=== PATIENT | female | born 1970 | race Caucasian/White ===

== ENCOUNTER 2017-01-22 23:33 | Emergency (ER) | payer MEDICARE ==
[~2017-01-22] VITALS: Ht 167.6 cm; Wt 109.0 kg
[~2017-01-22 23:33] MED LIST: ACID1TAB7 PO; ALBU8.5H5 INH; ARIP10TA13 PO; ARTANE PO; ASEN5TAB7 SL; BUDE10.22 INH; BUSP15TA PO; BUSP30TA PO; CARB200T PO; CEPH-376 PO; DOXY100T PO; DULO30CA2 PO; DULO60CA7 PO; FLUO40CA2 PO; FLUO40CA9 PO; GABA100C8; GABA300C10 PO; GABA600T2 PO; HYDR-3307 PO; HYDR2TAB40 PO; HYDR4TAB16 PO; HYDR50CA PO; LEVO50CA2 PO; LEVO50TA5 PO; LORA0.5T PO; LURA40TA PO; MELO-190 PO; MONT10TA6 PO; MONT10TA9 PO; NAPR500T PO; OXYC-302 PO; PREG75CA PO; QUET200T4 PO; SULF1TAB23 PO; TIOT18CA INH; TOPI200T6 PO; TRAM-28 PO; TRAZ100T15 PO; TRAZ150T68 PO; [UNRECOGNIZED DRUG - OTHER] PO; [UNRECOGNIZED DRUG - OTHER] PO
[2017-01-23] MEDS ORDERED: DIPHENHYDRAMINE 50 MG/ML, 1ML ONE (00:18)
[2017-01-23] MEDS ORDERED: PROCHLORPERAZINE 5 MG/ML, 2ML ONE (00:18)
[2017-01-23] MEDS ORDERED: KETOROLAC 30 MG/1 ML ONE (00:18)
[2017-01-23] MEDS ORDERED: KETOROLAC 30 MG/1 ML IVPush ONE (00:30)
[2017-01-23] MEDS ORDERED: PROCHLORPERAZINE 5 MG/ML, 2ML IVPush ONE (00:30)
[2017-01-23] MEDS ORDERED: DIPHENHYDRAMINE 50 MG/ML, 1ML IVPush ONE (00:30)
[2017-01-23] MEDS ORDERED: SODIUM CHLORIDE FLUSH 10ML SYR IVF ONE (00:30)
[2017-01-23] MEDS ORDERED: SODIUM CHLORIDE 0.9% 1,000ML IVBOLUS ONE (00:30)
[2017-01-23 00:50] LABS: HEMOGLOBIN 11.3 g/dL (11.7-16.4)
[2017-01-23 00:55] LABS: ACETAMINOPHEN 3 mcg/mL (10-30); ASPARTATE AMINO TRANSFERASE 21 U/L (15-37); BLOOD UREA NITROGEN 16 mg/dL (7-18)
[2017-01-23 01:02] LABS: ANISOCYTOSIS 1+; HYPOCHROMIA 1+; POIKILOCYTOSIS 1+; POLYCHROMASIA 1+
[2017-01-23 01:04] LABS: MICROCYTOSIS 2+; OVALOCYTES 1+; SCHISTOCYTES 1+
[2017-01-23 02:27] VITALS: BP 110/63
== END 2017-01-23 02:31 | disposition home or self-care (01) ==
LOC: ED 23:59
DX: T39.1X1A Poisoning by 4-Aminophenol derivatives, accidental (unintentional), initial encounter (principal); G43.011 Migraine without aura, intractable, with status migrainosus; J45.909 Unspecified asthma, uncomplicated; F41.1 Generalized anxiety disorder; F32.9 Major depressive disorder, single episode, unspecified
CPT/HCPCS: 36415; 80053; 80307; 80329; 85025; 96361; 96374; 96375; 99284; J0780; J1200; J1885; J7030; G0480

== ENCOUNTER → 2017-02-06 | Outpatient (CLI) | payer MEDICARE | END | disposition home or self-care (01) | LOC: CFH 10:05 | PROVIDERS: ATTEND Family Medicine | DX: Z12.31 Encounter for screening mammogram for malignant neoplasm of breast (principal) | CPT/HCPCS: G0202 ==

== ENCOUNTER 2017-04-04 16:35 | Emergency (ER) | payer MEDICARE ==
[~2017-04-04 16:35] MED LIST changes: +GABA-826; -GABA100C8; -HYDR4TAB16 PO; +HYDR4TAB48 PO
[2017-04-04] MEDS ORDERED: ALBUTEROL/IPRATROPIUM 2.5MG/0.5MG, 3 ML ONE (17:20)
[2017-04-14] MEDS ORDERED: BUPIVACAINE/PF-EPI 0.5% 1:200K ONE (09:25)
== END 2017-04-04 17:01 | disposition home or self-care (01) ==
LOC: ED 17:00
DX: Z53.21 Procedure and treatment not carried out due to patient leaving prior to being seen by health care provider (principal)

== ENCOUNTER 2017-04-06 11:46 | Emergency (ER) | payer MEDICARE ==
[~2017-04-06] VITALS: Ht 167.6 cm; Wt 110.0 kg
[~2017-04-06 11:46] MED LIST changes: +HYDR4TAB16 PO; -HYDR4TAB48 PO
[2017-04-06] MEDS ORDERED: HYDROmorphone 1 MG/ML, 1ML ONE (12:47)
[2017-04-06] MEDS ORDERED: KETOROLAC 30 MG/1 ML ONE (12:47)
[2017-04-06 12:57] VITALS: BP 149/92
[2017-04-06] MEDS ORDERED: HYDROmorphone 1 MG/ML, 1ML IM ONE (13:00)
[2017-04-06] MEDS ORDERED: KETOROLAC 30 MG/1 ML IM ONE (13:00)
== END 2017-04-06 14:12 | disposition home or self-care (01) ==
LOC: ED 14:00
DX: M54.2 Cervicalgia (principal); G89.29 Other chronic pain; G43.909 Migraine, unspecified, not intractable, without status migrainosus; J45.909 Unspecified asthma, uncomplicated; E07.9 Disorder of thyroid, unspecified
CPT/HCPCS: 72050; 96372; 99284; J1170; J1885

== ENCOUNTER 2017-04-06 23:17 | Emergency (ER) | payer MEDICARE ==
[~2017-04-06] VITALS: Ht 172.7 cm; Wt 100.0 kg
[2017-04-07 00:31] LABS: BLOOD UREA NITROGEN 21 mg/dL (7-18)
[2017-04-07 02:03] VITALS: BP 128/78
== END 2017-04-07 02:07 | disposition home or self-care (01) ==
LOC: ED 23:44
DX: R53.1 Weakness (principal); J45.909 Unspecified asthma, uncomplicated; E07.9 Disorder of thyroid, unspecified; Z91.013 Allergy to seafood; Z91.041 Radiographic dye allergy status
CPT/HCPCS: 36415; 80048; 82040; 85025; 99284

== ENCOUNTER 2017-04-07 07:38 | Emergency (ER) | payer MEDICARE ==
[~2017-04-07] VITALS: Ht 167.6 cm; Wt 100.0 kg
[2017-04-07] MEDS ORDERED: ASPIRIN 81 MG TABLET CHEW ONE (08:27)
[2017-04-07] MEDS ORDERED: LORazepam 2 MG/ML, 1ML ONE (08:27)
[2017-04-07] MEDS ORDERED: ASPIRIN 81 MG TABLET CHEW PO ONE (08:30)
[2017-04-07] MEDS ORDERED: LORazepam 2 MG/ML, 1ML IVPush ONE (08:30)
[2017-04-07] MEDS ORDERED: SODIUM CHLORIDE 0.9% 1,000ML IVBOLUS ONE (08:30)
[2017-04-07 08:46] LABS: BLOOD UREA NITROGEN 17 mg/dL (7-18)
[2017-04-07 08:51] LABS: IS PT STATUS REG ER OR PRE ER? YES
[2017-04-07 13:01] VITALS: BP 136/86
== END 2017-04-07 13:37 | disposition home or self-care (01) ==
LOC: ED 09:14
DX: F41.1 Generalized anxiety disorder (principal); M54.2 Cervicalgia; G89.29 Other chronic pain; R53.1 Weakness; G43.909 Migraine, unspecified, not intractable, without status migrainosus; E07.9 Disorder of thyroid, unspecified; J45.909 Unspecified asthma, uncomplicated; Z91.013 Allergy to seafood; Z91.041 Radiographic dye allergy status
CPT/HCPCS: 36415; 71010; 80048; 81001; 82040; 83605; 83880; 84484; 85025; 87086; 93005; 96361; 96374; 99285; J2060; J7030

== ENCOUNTER 2017-04-08 00:01 | Inpatient (IN) | payer MEDICARE ==
[~2017-04-08] VITALS: Ht 167.6 cm; Wt 107.4 kg
[~2017-04-08 00:01] MED LIST changes: -HYDR4TAB16 PO; +HYDR4TAB48 PO
[2017-04-08 05:43] VITALS: BP 130/90
[2017-04-08 05:52] LABS: DAU SCREEN DISCLAIMER
[2017-04-08 06:03] LABS: HCG UR OBC PASS
[2017-04-08 06:48] LABS: ASPARTATE AMINO TRANSFERASE 20 U/L (15-37); BLOOD UREA NITROGEN 13 mg/dL (7-18)
[2017-04-08 06:49] LABS: ACETAMINOPHEN < 2 mcg/mL (10-30)
[2017-04-08] MEDS: PLEASE ENTER HEIGHT AND WEIGHT MC SCH (07:50)
[2017-04-08 08:16] VITALS: BP 158/110
[2017-04-08] MEDS: ENOXAPARIN 40 MG/0.4 ML SQ SCH (09:30)
[2017-04-08] MEDS: LORazepam 1MG TABLET PO PRN ×2 (10:35→17:04)
[2017-04-08 12:22] VITALS: BP 138/89
[2017-04-08 13:06] VITALS: BP 138/89
[2017-04-08 18:37] VITALS: BP 122/80
[2017-04-09] MEDS: LORazepam 1MG TABLET PO PRN ×2 (00:36→09:04)
[2017-04-09 02:20] VITALS: BP 110/74
[2017-04-09 08:13] VITALS: BP 152/92
[2017-04-09] MEDS: ENOXAPARIN 40 MG/0.4 ML SQ SCH ×3 (09:04→12:01)
[2017-04-09 14:14] VITALS: BP 140/93
[2017-04-09 18:50] VITALS: BP 134/85
[2017-04-10 01:50] VITALS: BP 132/84
[2017-04-10] MEDS: LORazepam 1MG TABLET PO PRN (05:51)
[2017-04-10 07:10] VITALS: BP 138/90
[2017-04-10] MEDS: ENOXAPARIN 40 MG/0.4 ML SQ SCH (09:50)
[2017-04-10 12:28] VITALS: BP 139/92
[2017-04-10 12:50] VITALS: BP 129/81
[2017-04-10] MEDS: DEXAMETHASONE 4 MG/ML, 1ML IVPush SCH ×2 (15:30→15:38)
[2017-04-10] MEDS: DEXAMETHASONE 4 MG TABLET PO SCH (18:06)
[2017-04-10 19:59] VITALS: BP 131/92
[2017-04-11] MEDS: DEXAMETHASONE 4 MG TABLET PO SCH ×5 (00:49→23:24)
[2017-04-11 01:23] VITALS: BP 133/86
[2017-04-11 14:39] VITALS: BP 147/87
[2017-04-11] MEDS: GABAPENTIN 300 MG CAPSULE PO SCH ×2 (17:18→21:06)
[2017-04-11 21:38] VITALS: BP 135/85
[2017-04-12 01:29] VITALS: BP 148/92
[2017-04-12] MEDS: DEXAMETHASONE 4 MG TABLET PO SCH ×3 (05:27→16:28)
[2017-04-12] MEDS: LORazepam 1MG TABLET PO PRN (06:18)
[2017-04-12 06:30] VITALS: BP 135/87
[2017-04-12 06:41] VITALS: BP 129/86
[2017-04-12] MEDS: GABAPENTIN 300 MG CAPSULE PO SCH ×3 (09:11→20:47)
[2017-04-12] MEDS: ENOXAPARIN 40 MG/0.4 ML SQ SCH (09:12)
[2017-04-12 12:42] VITALS: BP 130/77
[2017-04-12 20:45] VITALS: BP 135/85
[2017-04-13] MEDS: DEXAMETHASONE 4 MG TABLET PO SCH ×4 (00:49→18:00)
[2017-04-13 02:45] VITALS: BP 149/96
[2017-04-13] MEDS: ENOXAPARIN 40 MG/0.4 ML SQ SCH (09:26)
[2017-04-13] MEDS: GABAPENTIN 300 MG CAPSULE PO SCH ×3 (09:26→19:57)
[2017-04-13 09:54] VITALS: BP 144/89
[2017-04-13] MEDS: LORazepam 1MG TABLET PO PRN (14:18)
[2017-04-13 14:33] VITALS: BP 159/103
[2017-04-13 18:48] VITALS: BP 145/85
[2017-04-13] MEDS: CIPROFLOXACIN 500 MG TABLET PO SCH (19:57)
[2017-04-14] MEDS: DEXAMETHASONE 4 MG TABLET PO SCH ×4 (00:47→22:34)
[2017-04-14 02:56] VITALS: BP 123/73
[2017-04-14] MEDS ORDERED: BACITRACIN 50,000 UNIT ONE (06:36)
[2017-04-14] MEDS ORDERED: THROMBIN 20,000 UNIT VIAL TP ONE (06:36)
[2017-04-14] MEDS ORDERED: BUPIVACAINE/PF-EPI 0.5% 1:200K ONE (06:36)
[2017-04-14] MEDS ORDERED: MIDAZOLAM 1 MG/ML, 2ML ONE (08:32)
[2017-04-14] MEDS ORDERED: FENTANYL PF 250 MCG/5ML ONE (08:32)
[2017-04-14] MEDS: GABAPENTIN 300 MG CAPSULE PO SCH ×3 (09:00→22:34)
[2017-04-14] MEDS: CIPROFLOXACIN 500 MG TABLET PO SCH ×2 (09:00→22:33)
[2017-04-14] MEDS ORDERED: THROMBIN 5,000 UNIT VIAL TP ONE ×2 (09:18→11:14)
[2017-04-14] MEDS ORDERED: CEFAZOLIN 1,000 MG ONE (09:24)
[2017-04-14] MEDS ORDERED: PROPOFOL 10 MG/ML, 50ML ONE (09:24)
[2017-04-14] MEDS ORDERED: PROPOFOL 10 MG/ML, 20ML ONE (09:24)
[2017-04-14] MEDS ORDERED: DEXAMETHASONE 4 MG/ML, 1ML ONE (09:24)
[2017-04-14] MEDS ORDERED: ONDANSETRON 2MG/ML, 2ML ONE (09:24)
[2017-04-14] MEDS ORDERED: ROCURONIUM 10 MG/ML ONE (09:24)
[2017-04-14] MEDS ORDERED: SUCCINYLCHOLINE 20 MG/ML, 10ML ONE (09:24)
[2017-04-14] MEDS ORDERED: hydrALAzine 20 MG/ML, 1ML IV PRN (09:30)
[2017-04-14] MEDS ORDERED: METOCLOPRAMIDE 5 MG/ML, 2ML IV PRN (09:30)
[2017-04-14] MEDS ORDERED: FENTANYL PF 100 MCG/2ML IV PRN (09:30)
[2017-04-14] MEDS ORDERED: PROMETHAZINE 25 MG/ML, 1ML IV PRN (09:30)
[2017-04-14] MEDS ORDERED: LABETALOL 5MG/ML, 20ML IV PRN ×2 (09:30→14:00)
[2017-04-14] MEDS ORDERED: MEPERIDINE/PF 25MG/0.5ML IVPush PRN (09:30)
[2017-04-14] MEDS ORDERED: OXYcodone 5 MG/5 ML ORAL.SOL UDC PO PRN (09:30)
[2017-04-14] MEDS ORDERED: ONDANSETRON 2MG/ML, 2ML IVPush PRN (09:30)
[2017-04-14] MEDS ORDERED: FENTANYL PF 100 MCG/2ML ONE (09:50)
[2017-04-14] MEDS ORDERED: BUPIVACAINE/PF-EPI 0.5% 1:200K INFIL ONE (11:14)
[2017-04-14] MEDS ORDERED: BACITRACIN 50,000 UNIT IM ONE (11:15)
[2017-04-14] MEDS: HYDROmorphone 1 MG/ML, 1ML IV PRN ×4 (11:44→12:08)
[2017-04-14] MEDS ORDERED: HYDROmorphone 2 MG/ML, 1ML ONE (11:45)
[2017-04-14] MEDS ORDERED: OXYcodone 5 MG/5 ML ORAL.SOL UDC ONE (12:12)
[2017-04-14] MEDS ORDERED: ONDANSETRON 2MG/ML, 2ML IV PRN (14:00)
[2017-04-14] MEDS ORDERED: METHOCARBAMOL 750 MG TABLET PO PRN (14:00)
[2017-04-14] MEDS ORDERED: morphine SULFATE 10 MG/ML, 1ML IV PRN (14:00)
[2017-04-14] MEDS ORDERED: BISACODYL 10 MG SUPP PR PRN (14:00)
[2017-04-14] MEDS ORDERED: ALBUTEROL SULFATE 2.5 MG/3 ML HHN PRN (14:00)
[2017-04-14] MEDS ORDERED: PROMETHAZINE 25 MG/ML, 1ML IM PRN (14:00)
[2017-04-14] MEDS ORDERED: DIPHENHYDRAMINE 50 MG CAPSULE PO PRN (14:00)
[2017-04-14] MEDS ORDERED: MAGNESIUM HYDROXIDE 8%, 30ML UDC PO PRN (14:00)
[2017-04-14] MEDS ORDERED: ALBUTEROL SULFATE 2.5 MG/3 ML NPPB PRN (15:30)
[2017-04-14 16:39] VITALS: BP 146/87
[2017-04-14] MEDS: HYDROcodone/APAP 10/325 MG TABLET PO PRN (17:21)
[2017-04-14] MEDS: D5%-0.9% NACL+KCL 20MEQ 1,000 ML IV SCH (17:56)
[2017-04-14] MEDS: CEFAZOLIN PMX 1GM/50ML 50 ML IVPB SCH (18:10)
[2017-04-14 20:16] VITALS: BP 143/86
[2017-04-14] MEDS: FLUOXETINE 20 MG CAPSULE PO SCH (22:35)
[2017-04-14 23:22] VITALS: BP 138/89
[2017-04-15] MEDS: CEFAZOLIN PMX 1GM/50ML 50 ML IVPB SCH (02:18)
[2017-04-15] MEDS: D5%-0.9% NACL+KCL 20MEQ 1,000 ML IV SCH ×2 (02:18→14:20)
[2017-04-15 03:09] VITALS: BP 132/84
[2017-04-15] MEDS: DEXAMETHASONE 4 MG TABLET PO SCH ×4 (04:41→22:30)
[2017-04-15 06:38] VITALS: BP 137/89
[2017-04-15 06:38] LABS: ASPARTATE AMINO TRANSFERASE 11 U/L (15-37); BLOOD UREA NITROGEN 14 mg/dL (7-18)
[2017-04-15] MEDS: LEVOTHYROXINE 75 MCG TABLET PO SCH (06:45)
[2017-04-15] MEDS: GABAPENTIN 300 MG CAPSULE PO SCH ×3 (08:49→21:05)
[2017-04-15] MEDS: CIPROFLOXACIN 500 MG TABLET PO SCH ×2 (08:49→21:05)
[2017-04-15] MEDS: DULOXETINE 30 MG CAPSULE.DR PO SCH (08:49)
[2017-04-15] MEDS: PREGABALIN 75 MG CAPSULE PO SCH (08:49)
[2017-04-15] MEDS: FLUOXETINE 20 MG CAPSULE PO SCH ×2 (08:49→21:05)
[2017-04-15] MEDS ORDERED: SENNA/DOCUSATE TABLET PO SCH (09:00)
[2017-04-15 14:06] VITALS: BP 143/87
[2017-04-15 20:00] VITALS: BP 125/80
[2017-04-15] MEDS: TRAZODONE 150MG TABLET PO SCH (21:06)
[2017-04-16 01:53] VITALS: BP 142/87
[2017-04-16] MEDS: DEXAMETHASONE 4 MG TABLET PO SCH ×4 (04:36→22:27)
[2017-04-16] MEDS: LEVOTHYROXINE 75 MCG TABLET PO SCH (06:32)
[2017-04-16 09:42] VITALS: BP 152/99
[2017-04-16] MEDS: CIPROFLOXACIN 500 MG TABLET PO SCH ×2 (09:44→20:40)
[2017-04-16] MEDS: FLUOXETINE 20 MG CAPSULE PO SCH (09:44)
[2017-04-16] MEDS: SENNA/DOCUSATE TABLET PO SCH (09:44)
[2017-04-16] MEDS: PREGABALIN 75 MG CAPSULE PO SCH (09:44)
[2017-04-16] MEDS: DULOXETINE 30 MG CAPSULE.DR PO SCH (09:44)
[2017-04-16] MEDS: GABAPENTIN 300 MG CAPSULE PO SCH ×3 (09:44→20:40)
[2017-04-16] MEDS: D5%-0.9% NACL+KCL 20MEQ 1,000 ML IV SCH ×3 (10:00→20:00)
[2017-04-16 14:07] VITALS: BP 161/108
[2017-04-16 18:49] VITALS: BP 133/89
[2017-04-16] MEDS: TRAZODONE 150MG TABLET PO SCH (20:40)
[2017-04-16] MEDS: DULOXETINE 20 MG CAPSULE.DR PO SCH (20:45)
[2017-04-17 01:36] VITALS: BP 126/85
[2017-04-17] MEDS: DEXAMETHASONE 4 MG TABLET PO SCH ×3 (04:33→15:30)
[2017-04-17] MEDS: D5%-0.9% NACL+KCL 20MEQ 1,000 ML IV SCH (06:24)
[2017-04-17] MEDS: LEVOTHYROXINE 75 MCG TABLET PO SCH (06:24)
[2017-04-17 08:30] VITALS: BP 139/97
[2017-04-17] MEDS: DULOXETINE 20 MG CAPSULE.DR PO SCH (08:40)
[2017-04-17] MEDS: PREGABALIN 75 MG CAPSULE PO SCH (08:41)
[2017-04-17] MEDS: CIPROFLOXACIN 500 MG TABLET PO SCH (08:41)
[2017-04-17] MEDS: GABAPENTIN 300 MG CAPSULE PO SCH ×2 (08:41→15:30)
[2017-04-17] MEDS: SENNA/DOCUSATE TABLET PO SCH (08:41)
[2017-04-17] MEDS ORDERED: FLUOXETINE 20 MG CAPSULE PO SCH (09:00)
[2017-04-17] MEDS: HYDROcodone/APAP 10/325 MG TABLET PO PRN (10:25)
[2017-04-17 13:41] VITALS: BP 142/91
[2017-04-17] MEDS ORDERED: DULO30CA4 PO (16:08)
[2017-04-17] MEDS ORDERED: HYDR-883 PO (16:09)
== END 2017-04-17 17:00 | disposition home or self-care (01) | DRG 472 ==
LOC: ED 05:38 → EDIP 05:39 → INTOOBSV 05:39 → 3E 05:43 → 3NE 12:30 → 4NOR 04-14 11:47 → OBSVTOIN 04-14 13:35 → 4NOR 04-15 07:55
PROVIDERS: ADMIT Internal Medicine; ATTEND Internal Medicine
PROC: 0RG10A0 Fusion of Cervical Vertebral Joint with Interbody Fusion Device, Anterior Approach, Anterior Column, Open Approach (ICD-10-PCS; 2017-04-14)
PROC: 4A11X4G Monitoring of Peripheral Nervous Electrical Activity, Intraoperative, External Approach (ICD-10-PCS; 2017-04-14)
PROC: 0RB30ZZ Excision of Cervical Vertebral Disc, Open Approach (ICD-10-PCS; principal; 2017-04-14 09:30)
DX: M50.123 Cervical disc disorder at C6-C7 level with radiculopathy (principal); R45.851 Suicidal ideations; F11.23 Opioid dependence with withdrawal; T42.6X2A Poisoning by other antiepileptic and sedative-hypnotic drugs, intentional self-harm, initial encounter; G89.29 Other chronic pain; E03.9 Hypothyroidism, unspecified; J45.909 Unspecified asthma, uncomplicated; F41.1 Generalized anxiety disorder; F60.3 Borderline personality disorder; F43.21 Adjustment disorder with depressed mood; F33.41 Major depressive disorder, recurrent, in partial remission; Y92.89 Other specified places as the place of occurrence of the external cause; Z90.89 Acquired absence of other organs; Z91.030 Bee allergy status; Z91.013 Allergy to seafood; Z91.018 Allergy to other foods; Z98.1 Arthrodesis status; E66.01 Morbid (severe) obesity due to excess calories; Z68.38 Body mass index [BMI] 38.0-38.9, adult; F60.9 Personality disorder, unspecified; R20.9 Unspecified disturbances of skin sensation
CPT/HCPCS: 36415; 71010; 72141; 80048; 80053; 80076; 80307; 80329; 81001; 81025; 82040; 83690; 85025; 85610; 87040; 87081; 87086; 93005; 94640; C1713; G0378; J0690; J1100; J1170; J1650; J2250; J2405; J2704; J3010; J7613; C1762; G0480; J0330; J3480

== ENCOUNTER → 2017-05-08 | Outpatient (CLI) | payer MEDICARE ==
[~2017-05-08] MED LIST changes: +DULO30CA4 PO; +HYDR-883 PO
== END | disposition home or self-care (01) ==
LOC: RAD 18:04
PROVIDERS: ATTEND Physician Assistant Surgical
DX: I82.401 Acute embolism and thrombosis of unspecified deep veins of right lower extremity (principal)

== ENCOUNTER 2017-08-02 15:41 | Emergency (ER) | payer MEDICARE, MEDICAID ==
[~2017-08-02] VITALS: Ht 167.6 cm; Wt 113.5 kg
[~2017-08-02 15:41] MED LIST changes: -ARIP10TA13 PO; +ARIP10TA33 PO; -MELO-190 PO; +MELO7.5T31 PO; -TRAM-28 PO; +TRAM-47 PO; +TRAZ150T62 PO; -TRAZ150T68 PO
[2017-08-02] MEDS ORDERED: PRED20TA PO (15:53)
[2017-08-02] MEDS ORDERED: AMOX125T PO (15:53)
[2017-08-02] MEDS ORDERED: MORPHINE SULFATE 4 MG/ML, 1ML ONE ×2 (16:18→18:56)
[2017-08-02] MEDS ORDERED: DIPHENHYDRAMINE 50 MG/ML, 1ML ONE (16:19)
[2017-08-02] MEDS ORDERED: methylPREDNISolone SOD SUCC 125 MG/2 ML ONE (16:19)
[2017-08-02] MEDS ORDERED: DIPHENHYDRAMINE 50 MG/ML, 1ML IVPush ONE (16:30)
[2017-08-02] MEDS ORDERED: methylPREDNISolone SOD SUCC 125 MG/2 ML IVPush ONE (16:30)
[2017-08-02] MEDS ORDERED: SODIUM CHLORIDE 0.9% 1,000ML IVBOLUS ONE (16:30)
[2017-08-02] MEDS ORDERED: SODIUM CHLORIDE FLUSH 10ML SYR IVF ONE (16:30)
[2017-08-02] MEDS: MORPHINE SULFATE 4 MG/ML, 1ML IVPush PRN ×2 (16:40→19:00)
[2017-08-02 16:57] LABS: HEMATOCRIT 40.7 % (34.6-47.8); HEMOGLOBIN 13.5 g/dL (11.7-16.4); WHITE BLOOD COUNT 17.8 x10^3/uL (3.4-10)
[2017-08-02 17:10] LABS: BLOOD UREA NITROGEN 15 mg/dL (7-18)
[2017-08-02 17:15] LABS: IS PT STATUS REG ER OR PRE ER? YES
[2017-08-02] MEDS ORDERED: OMNIPAQUE 350 MG/ML, 100ML BOTTLE ONE (17:51)
[2017-08-02 20:00] VITALS: BP 138/80
== END 2017-08-02 20:01 | disposition home or self-care (01) ==
LOC: ED 18:40
DX: R07.89 Other chest pain (principal)
CPT/HCPCS: 36415; 71275; 80048; 82040; 84484; 85025; 85610; 85730; 93005; 93970; 96361; 96374; 96375; 96376; 99285; J1200; J2930; J7030; Q9967

== ENCOUNTER → 2017-10-27 | Outpatient (CLI) | payer MEDICARE, MEDICAID ==
[~2017-10-27] MED LIST changes: +AMOX125T PO; +NAPR-856 PO; -NAPR500T PO; +PRED20TA PO
== END | disposition home or self-care (01) ==
LOC: CVU 08:38
PROVIDERS: ATTEND Family Medicine
DX: M79.606 Pain in leg, unspecified (principal)
CPT/HCPCS: 93922

== ENCOUNTER 2017-11-23 08:52 | Emergency (ER) | payer MEDICARE, MEDICAID ==
[~2017-11-23] VITALS: Ht 167.6 cm; Wt 109.0 kg
[2017-11-23] MEDS ORDERED: METOCLOPRAMIDE 5 MG/ML, 2ML ONE ×2 (09:45→11:07)
[2017-11-23] MEDS ORDERED: KETOROLAC 30 MG/1 ML ONE (09:45)
[2017-11-23] MEDS ORDERED: KETOROLAC 30 MG/1 ML IVPush ONE (10:00)
[2017-11-23] MEDS ORDERED: SODIUM CHLORIDE 0.9% 1,000ML IVBOLUS ONE (10:00)
[2017-11-23] MEDS ORDERED: METOCLOPRAMIDE 5 MG/ML, 2ML IVPush ONE ×2 (10:00→11:30)
[2017-11-23] MEDS ORDERED: SODIUM CHLORIDE FLUSH 10ML SYR IVF ONE (10:00)
[2017-11-23 12:10] VITALS: BP 111/65
[2017-11-23] MEDS ORDERED: LIDOCAINE 1%-EPI 1:100K, 20ML SQ ONE (13:00)
== END 2017-11-23 13:09 | disposition home or self-care (01) ==
LOC: ED 09:25
DX: G43.009 Migraine without aura, not intractable, without status migrainosus (principal); G62.9 Polyneuropathy, unspecified; J45.909 Unspecified asthma, uncomplicated
CPT/HCPCS: 96361; 96374; 96375; 96376; 99284; J1885; J2765; J7030

== ENCOUNTER 2018-01-12 09:37 | Emergency (ER) | payer MEDICARE, MEDICAID ==
[~2018-01-12] VITALS: Ht 167.6 cm; Wt 110.7 kg
[~2018-01-12 09:37] MED LIST changes: +ZIPR20CA2 PO
[2018-01-12 09:53] VITALS: BP 119/83
[2018-01-12] MEDS ORDERED: KETOROLAC 30 MG/1 ML ONE (10:29)
[2018-01-12] MEDS ORDERED: KETOROLAC 30 MG/1 ML IM ONE (10:30)
== END 2018-01-12 12:04 | disposition home or self-care (01) ==
LOC: ED 11:58
DX: S16.1XXA Strain of muscle, fascia and tendon at neck level, initial encounter (principal); M54.12 Radiculopathy, cervical region; J45.909 Unspecified asthma, uncomplicated; X58.XXXA Exposure to other specified factors, initial encounter; Y93.89 Activity, other specified; Y92.89 Other specified places as the place of occurrence of the external cause; Y99.9 Unspecified external cause status
CPT/HCPCS: 72141; 96372; 99284; J1885

== ENCOUNTER 2018-02-09 04:58 | Observation (INO) | payer MEDICARE, MEDICAID ==
[~2018-02-09] VITALS: Ht 167.6 cm; Wt 119.1 kg
[~2018-02-09 04:58] MED LIST changes: +SUMA100T3 PO; +ZIPR80CA2 PO
[2018-02-09] MEDS ORDERED: LORazepam 1MG TABLET ONE (05:21)
[2018-02-09 05:29] LABS: HCG UR SG 1.009 (1.003-1.030); MICROSCOPIC NOT IND
[2018-02-09 05:30] LABS: CULTURE INDICATED? NO
[2018-02-09] MEDS ORDERED: LORazepam 1MG TABLET PO ONE (05:30)
[2018-02-09 05:31] LABS: BASOPHILS # (AUTO) 0.01 x10^3/uL (0-0.1); BASOPHILS % (AUTO) 0 % (0-1); EOSINOPHILS % (AUTO) 0 % (1-7); LYMPHOCYTES # (AUTO) 1.18 x10^3/uL (1-3.4); LYMPHOCYTES % (AUTO) 11 % (22-44); MD NO; MEAN CORPUSCULAR HEMOGLOBIN 32.2 pg (27.0-34.8); MEAN CORPUSCULAR VOLUME 94.7 fL (80-100); MEAN PLATELET VOLUME 8.2 fL (7.4-10.4); MONOCYTES # (AUTO) 0.15 x10^3/uL (0.2-0.8); MONOCYTES % (AUTO) 2 % (2-9); NEUTROPHILS # (AUTO) 9.02 x10^3/uL (1.8-6.8); NEUTROPHILS % (AUTO) 87 % (42-75); PLATELET COUNT 239 x10^3/uL (130-400); RED BLOOD COUNT 4.38 x10^6/uL (3.82-5.3)
[2018-02-09 05:40] LABS: AMPHETAMINE SCREEN, URINE Negative (Negative); BARBITURATE SCREEN, URINE Negative (Negative); BENZODIAZEPINE SCREEN, URINE Negative (Negative); CANNABINOID SCREEN, URINE Negative (Negative); COCAINE SCREEN, URINE Negative (Negative); METHADONE SCREEN, URINE Negative (Negative); OPIATE SCREEN, URINE Positive (Negative)
[2018-02-09 05:42] LABS: ALBUMIN 3.5 g/dL (3.4-5.0); ANION GAP 10 mmol/L (5-15); CALCIUM 8.4 mg/dL (8.5-10.1); CHLORIDE 110 mmol/L (98-107); CREATININE 1.03 mg/dL (0.55-1.02)
[2018-02-09 06:24] LABS: SALICYLATE LEVEL < 1.7 mg/dL (2.8-20.0)
[2018-02-09 06:29] LABS: ACETAMINOPHEN < 2 mcg/mL (10-30)
[2018-02-09] MEDS ORDERED: SODIUM CHLORIDE 0.9% 1,000ML IVBOLUS ONE (06:30)
[2018-02-09] MEDS ORDERED: METOCLOPRAMIDE 5 MG/ML, 2ML IVPush ONE (06:30)
[2018-02-09] MEDS ORDERED: SODIUM CHLORIDE FLUSH 10ML SYR IVF ONE (06:30)
[2018-02-09] MEDS ORDERED: METOCLOPRAMIDE 5 MG/ML, 2ML ONE (08:18)
[2018-02-09] MEDS ORDERED: ZIPRASIDONE 20MG CAPSULE PO PRN (12:30)
[2018-02-09] MEDS ORDERED: POLYETHYLENE GLYCOL 17 GM PACKET PO PRN (12:30)
[2018-02-09] MEDS ORDERED: SUMATRIPTAN 100 MG TABLET PO PRN (12:30)
[2018-02-09] MEDS ORDERED: ALBUTEROL SULFATE INH PRN (12:30)
[2018-02-09] MEDS ORDERED: TRAZODONE 150MG TABLET PO PRN ×2 (12:30→14:00)
[2018-02-09] MEDS ORDERED: BISACODYL 10 MG SUPP PR PRN (12:30)
[2018-02-09] MEDS ORDERED: ZIPRASIDONE 20 MG INJ IM PRN (12:30)
[2018-02-09] MEDS ORDERED: ACETAMINOPHEN 325 MG TABLET PO PRN (12:30)
[2018-02-09] MEDS ORDERED: PREG75CA PO (13:43)
[2018-02-09] MEDS ORDERED: OMEP-110 PO (13:43)
[2018-02-09] MEDS ORDERED: TOPI100T24 PO (13:44)
[2018-02-09] MEDS: TOPIRAMATE 100 MG TABLET PO SCH ×2 (16:00→19:48)
[2018-02-09] MEDS ORDERED: HALOPERIDOL 5 MG TABLET PO PRN (16:30)
[2018-02-09 19:45] VITALS: BP 122/82
[2018-02-09] MEDS: DOCUSATE 100 MG CAPSULE PO SCH (19:48)
[2018-02-09] MEDS: PREGABALIN 75 MG CAPSULE PO SCH (19:58)
[2018-02-10 07:33] VITALS: BP 129/85
[2018-02-10] MEDS ORDERED: ZIPRASIDONE 40MG CAPSULE PO SCH (09:00)
[2018-02-10] MEDS ORDERED: DULOXETINE 30 MG CAPSULE.DR PO SCH (09:00)
[2018-02-10] MEDS ORDERED: OMEPRAZOLE 20 MG CAPSULE.DR PO SCH (09:00)
[2018-02-10] MEDS ORDERED: LEVOTHYROXINE 75 MCG TABLET PO SCH (09:00)
[2018-02-10] MEDS ORDERED: MONTELUKAST 10 MG TABLET PO SCH (09:00)
[2018-02-10] MEDS: DOCUSATE 100 MG CAPSULE PO SCH (09:00)
[2018-02-10] MEDS ORDERED: ZIPRASIDONE 20MG CAPSULE ONE (09:27)
[2018-02-10] MEDS: TOPIRAMATE 100 MG TABLET PO SCH (09:38)
[2018-02-10] MEDS: PREGABALIN 75 MG CAPSULE PO SCH (09:39)
== END 2018-02-10 12:16 ==
LOC: ED 07:12 → EDIP 08:49 → 3E 16:35
PROVIDERS: ADMIT Internal Medicine Pulmonary Disease; ATTEND Internal Medicine Pulmonary Disease
DX: R45.851 Suicidal ideations (principal); E03.9 Hypothyroidism, unspecified; F33.1 Major depressive disorder, recurrent, moderate; F41.1 Generalized anxiety disorder; J45.909 Unspecified asthma, uncomplicated; G43.909 Migraine, unspecified, not intractable, without status migrainosus; K59.00 Constipation, unspecified; Z91.5 Personal history of self-harm; E86.0 Dehydration
CPT/HCPCS: 36415; 80048; 80307; 80329; 81003; 81025; 82040; 84443; 85025; 96361; 96374; 99285; G0378; J2765; J7030; G0480